=== PATIENT | male | born 1960 | race Caucasian/White ===

== ENCOUNTER 2018-01-08 12:49 | Outpatient (CLI) | payer BC ==
--- NOTE | 2018-01-08 14:23 | MRI ---
NONCONTRAST MRI LUMBAR SPINE: DATE: 01/08/18. HISTORY: Low back pain with pain radiating down the left leg. Lumbar radiculopathy. COMPARISON: None available. FINDINGS: Conus medullaris is normal in appearance and terminates at the superior end plate of the L1 vertebral body. There is a subcentimeter focus of increased T1 and T2 weighted signal intensity in the right S1 verte bral body likely related to small hemangioma focal area of fat.. There is otherwise normal signal in tensity demonstrated throughout the bone marrow. L1-2 level: There is no disk bulge or disk herniation. Central spinal canal and neural foramen are patent. L2-3 level: There is no disk bulge or disk herniation. Central spinal canal and neural foramen are patent. L3-4 level: There is a mild broad-based disk-osteophyte complex with mild facet hypertrophic changes . There is minimal narrowing of the central spinal canal. There is minimal right-sided neural briana inal narrowing. The left neural foramen is patent. L4-5 level: There is loss of intervertebral disk height. There is a broad-based disk-osteophyte com plex with a left paracentral disk protrusion with slight extrusion of disk material inferiorly into t he subarticular zone on the left. This does result in mass effect in the left anterior and anterolat eral aspect of the thecal sac and likely affects the traversing left L5 nerve root. There is mild le ft-sided neural foraminal narrowing, but the right neural foramen is patent. There are facet hypertr ophic changes seen on the left at this level. L5-S1 level: There is a mild broad-based disk-osteophyte complex which results in only slight efface ment of the ventral aspect of the thecal sac. Neural foramen are widely patent. IMPRESSION: Degenerative disk changes of the lower lumbar spine, greatest at the L4-5 level. There is a left par acentral disk protrusion/extrusion which likely affects the traversing left L5 nerve root. Disk mate rial slightly extends inferiorly on the left in the subarticular zone. POS: [facility]
== END 2018-01-08 12:50 | disposition home or self-care (01) ==
LOC: TBSIIMAG 12:49
PROVIDERS: ATTEND Neurological Surgery
DX: M51.16 Intervertebral disc disorders with radiculopathy, lumbar region (principal)
CPT/HCPCS: 72148

== ENCOUNTER 2018-02-08 05:40 | Day surgery (SDC) | payer BC ==
[2018-02-01 11:15] VITALS: BMI 30.4
--- NOTE | 2018-02-07 10:31 | HP ---
HISTORY OF PRESENT ILLNESS: Mr. Laughlin is a 58-year-old gentleman who presented to us for evaluati on of left-sided L5 radicular pain. He has an MRI from [facility] that reveals a left-sided disk osteophyt e complex at L4-5 that would account for the symptoms that he is experiencing. He has treated with c hiropractics and medications with little to no improvement and hopes to move forward with surgery if possible. PAST MEDICAL HISTORY: Hyperlipidemia. CURRENT MEDICATIONS: Simvastatin. ALLERGIES: No known drug allergies. PAST SURGICAL HISTORY: Achilles tendon repair. PHYSICAL EXAMINATION: The patient is alert and oriented x3. Gait is not antalgic. Lower extremity motor exam is normal. ASSESSMENT: Lumbar radiculopathy. PLAN: Dr. Merritt met with the patient, reviewed imaging ultimately advocated for a left L4 decompress ion. He explained to the patient the risks, benefits, alternatives of the procedure. The patient ex pressed understanding and would like to move forward with surgery as discussed. I do believe the pat iehank is mentally competent and capable of making medical decisions for himself and we will move forwa rd with surgery as planned.
[2018-02-08] MEDS ORDERED: CEFAZOLIN/Water 2 GM/20 ML SYRINGE ONE ×2 (06:06→10:12)
[2018-02-08] MEDS ORDERED: Scopolamine 1.5 mg/72 hour Patch ONE (06:39)
[2018-02-08] MEDS ORDERED: Bupivacaine HCl 0.5%/Epinephrine 1:200,000/PF 30 ml Vial ONE (06:41)
[2018-02-08] MEDS ORDERED: Midazolam HCl 2 mg/2 ml Vial ONE (06:50)
[2018-02-08] MEDS ORDERED: Fentanyl 100 MCG/2 ML VIAL ONE (06:55)
[2018-02-08] MEDS ORDERED: Propofol 500 MG/50 ML VIAL ONE (07:02)
[2018-02-08] MEDS ORDERED: Propofol 1,000 MG/100 ML VIAL IV ONE (07:32)
[2018-02-08] MEDS ORDERED: SUGAMMADEX SODIUM 500 MG/5 ML VIAL ONE (07:32)
[2018-02-08] MEDS ORDERED: Tamsulosin HCl 0.4 MG CAP ONE (09:05)
[2018-02-08] MEDS ORDERED: Acetaminophen/Codeine 30-300mg Tablet ONE (10:15)
--- NOTE | 2018-02-08 10:27 | OP ---
DATE OF PROCEDURE: 02/08/2018 SURGEON: Wolf Merritt M.D. RECHECKER: Samuel Morales PA-C. INDICATION: Pain. DIAGNOSIS: Lumbar radiculopathy. PROCEDURE: Left L4 discectomy. ANESTHESIA: General. TECHNIQUE: The patient was brought into the operating room and placed under general anesthesia. He was flipped from a supine to a prone position on the operating room table. A linear incision was franco nned over the L4 segment. After prepping and draping and after an appropriate pause, the incision wa s created. The soft tissues were swept left of midline. A self-retaining retractor was placed in th e wound for optimal exposure. After confirming the appropriate level with C-arm fluoroscopy, a high- speed cutting drill bit as well as 2, 3 and 4-mm Kerrison was used to perform a laminectomy along the inferior aspect of L4 and the superior aspect of L5 on the left. The descending L5 nerve root was i dentified and mobilized medially. An annulotomy was performed in the disk space and disk material wa s removed until the lateral recesses and the descending L5 nerve root were well decompressed. The wo und was irrigated. Hemostasis was maintained throughout. The wound was then closed in anatomic laye rs and a pressure dressing was applied. There were no known procedural complications.
[2018-02-08] MEDS ORDERED: Ondansetron HCl/PF 4 MG/2 ML Vial ONE (13:36)
[2018-02-08] MEDS ORDERED: PROPOFOL 200 MG/20 ML VIAL ONE (13:36)
[2018-02-08] MEDS ORDERED: Lidocaine 1% PF 5 ML VIAL ONE (13:36)
[2018-02-08] MEDS ORDERED: Dexamethasone 20 MG/5 ML VIAL ONE (13:36)
[2018-02-08] MEDS ORDERED: Ketorolac Tromethamine 30 MG/ML VIAL ONE (13:36)
== END 2018-02-08 10:32 | disposition home or self-care (01) ==
LOC: SDC 05:40
PROVIDERS: ATTEND Neurological Surgery
PROC: 0SB20ZZ Excision of Lumbar Vertebral Disc, Open Approach (ICD-10-PCS; principal; 2018-02-08)
DX: M54.16 Radiculopathy, lumbar region (principal); M25.78 Osteophyte, vertebrae; E78.5 Hyperlipidemia, unspecified; E66.3 Overweight; Z68.30 Body mass index [BMI] 30.0-30.9, adult; Z79.82 Long term (current) use of aspirin; Z79.899 Other long term (current) drug therapy
CPT/HCPCS: J0670; J1100; J1885; J2001; J2250; J2405; J2704; J3010

== ENCOUNTER 2025-01-16 09:04 | Outpatient (CLI) | payer BC ==
[2025-01-16 09:46] LABS: Estimated GFR - POC 85.0
== END 2025-01-16 09:05 | disposition home or self-care (01) ==
LOC: SCSMRI 09:04
PROVIDERS: ATTEND Emergency Medicine
DX: R97.20 Elevated prostate specific antigen [PSA] (principal)
CPT/HCPCS: 36415; 72197; 82565